=== PATIENT | male | born 1990 | race Caucasian/White ===

== ENCOUNTER 2016-11-23 09:33 | Emergency (ER) | payer BC ==
[~2016-11-23] VITALS: Ht 177.8 cm; Wt 96.4 kg
[~2016-11-23 09:33] MED LIST: CLIN150 PO; PENI500T PO
[2016-11-23 09:37] VITALS: BP 136/77; PULSE 65; RESP 18; TEMP 97.5; O2SAT 97
--- NOTE | 2016-11-23 10:07 | PD ---
HPI Chief Complaint: ENT Complaint Time Seen by Provider: 09:58 Travel History International Travel<30 days: No Contact w/Intl Traveler<30days: No Traveled to known affect area: No History of Present Illness HPI This 25-year-old male says he been sick since last night. He feels like it had fever. He is aching all over. He's had a sore throat. He has been vomiting through the night. He says he gets a sore throat about every 6 months. He is on no medications. He has no history of surgery. He says he was vomiting throughout the night every 30 minutes. He is not having abdominal pain right now PFSH Past Medical History ADHD: Yes ?: Not Social History Alcohol Use: Yes Tobacco Use: No Substance Use: No Allergies-Medications (Allergen,Severity, Reaction): Coded Allergies: ibuprofen (Unverified Allergy, Mild, 11/23/16) Reported Meds & Prescriptions Reported Meds & Active Scripts Active Review of Systems General / Constitutional: Positive: Fever, Chills Eyes: No: Diploplia, Blurred Vision HENT: No: Headaches, Vertigo Cardiovascular: No: Chest Pain or Discomfort Respiratory: No: Cough Gastrointestinal: Positive: Nausea, Vomiting Genitourinary: No: Urgency, Frequency Musculoskeletal: No: Myalgias Skin: No Rash Neurologic: Positive: Weakness Hematologic/Lymphatic: No: Easy Bruising Physical Exam Narrative GENERAL: Well-developed male SKIN: Focused skin assessment warm/dry. HEAD: Atraumatic. Normocephalic. EYES: Pupils equal and round. No scleral icterus. No injection or drainage. ENT: No nasal bleeding or discharge. Mucous membranes pink and moist. Posterior pharynx is erythematous NECK: Trachea midline. No JVD. CARDIOVASCULAR: Regular rate and rhythm. No murmur appreciated. RESPIRATORY: No accessory muscle use. Clear to auscultation. Breath sounds equal bilaterally. GASTROINTESTINAL: Abdomen soft, non-tender, nondistended. Hepatic and splenic margins not palpable. MUSCULOSKELETAL: No obvious deformities. No clubbing. No cyanosis. No edema. NEUROLOGICAL: Awake and alert. No obvious cranial nerve deficits. Motor grossly within normal limits. Normal speech. PSYCHIATRIC: Appropriate mood and affect; insight and judgment normal. Data Data Last Documented VS Vital Signs Date Time Temp Pulse Resp B/P (MAP) Pulse Ox O2 Delivery O2 Flow Rate FiO2 11/23/16 09:37 97.5 65 18 136/77 (96) 97 Orders Orders Complete Blood Count With Diff (11/23/16 10:04) Basic Metabolic Panel (Bmp) (11/23/16 10:04) Influenzae A/B Antigen (11/23/16 10:04) Sodium Chlor 0.9% 1000 Ml Inj (Ns 1000 M (11/23/16 10:15) Sodium Chlor 0.9% 1000 Ml Inj (Ns 1000 M (11/23/16 10:15) Ondansetron Inj (Zofran Inj) (11/23/16 10:15) Group A Rapid Strep Screen (11/23/16 11:17) Ceftriaxone Inj (Rocephin Inj) (11/23/16 11:30) Strep Culture (Group A) (11/23/16 11:20) Labs Laboratory Tests Test 11/23/16 10:25 White Blood Count 22.1 TH/MM3 Red Blood Count 5.48 MIL/MM3 Hemoglobin 15.9 GM/DL Hematocrit 46.8 % Mean Corpuscular Volume 85.5 FL Mean Corpuscular Hemoglobin 29.0 PG Mean Corpuscular Hemoglobin Concent 33.9 % Red Cell Distribution Width 12.4 % Platelet Count 195 TH/MM3 Mean Platelet Volume 8.4 FL Neutrophils (%) (Auto) 88.6 % Lymphocytes (%) (Auto) 5.4 % Monocytes (%) (Auto) 4.3 % Eosinophils (%) (Auto) 0.1 % Basophils (%) (Auto) 1.6 % Neutrophils # (Auto) 19.6 TH/MM3 Lymphocytes # (Auto) 1.2 TH/MM3 Monocytes # (Auto) 0.9 TH/MM3 Eosinophils # (Auto) 0.0 TH/MM3 Basophils # (Auto) 0.4 TH/MM3 CBC Comment AUTO DIFF Differential Comment AUTO DIFF CONFIRMED Blood Urea Nitrogen 12 MG/DL Creatinine 0.90 MG/DL Random Glucose 107 MG/DL Calcium Level 8.8 MG/DL Sodium Level 136 MEQ/L Potassium Level 3.9 MEQ/L Chloride Level 104 MEQ/L Carbon Dioxide Level 23.1 MEQ/L Anion Gap 9 MEQ/L Estimat Glomerular Filtration Rate 102 ML/MIN MDM Medical Decision Making Medical Screen Exam Complete: Yes Emergency Medical Condition: Yes Medical Record Reviewed: Yes Differential Diagnosis Differential includes influenza, URI, pharyngitis Narrative Course Test for influenza is negative. Patient white count is quite elevated at 22, 000. He has had problems with recurrent sore throats. Tests for strep is negative. He will be treated empirically with antibiotics. The white count. Repeat examination the abdomen and there is no suggestion of pneumonia. He is not coughing in his lungs are clear. He has been given Rocephin and will be released Diagnosis Primary Impression: Pharyngitis Qualified Codes: J02.9 - Acute pharyngitis, unspecified Scripts Ondansetron Odt (Zofran Odt) 4 Mg Tab 4 MG SL Q6HR Y for Nausea/Vomiting, #10 TAB 0 Refills Prov: Cole Titus MD 11/23/16 Cephalexin (Keflex) 500 Mg Capsule 500 MG PO QID for Infection for 28 Days, CAP 0 Refills Prov: Cole Titus MD 11/23/16 Disposition: 01 DISCHARGE HOME Condition: Stable Cole Titus MD Nov 23, 2016 10:07
[2016-11-23] MEDS ORDERED: ONDANSETRON HCL 4 MG/2 ML VIAL IV PUSH ONE (10:15)
[2016-11-23] MEDS ORDERED: SODIUM CHLOR 0.9% 1000 ML INJ 1,000 ML IV ONE ×2 (10:15)
[2016-11-23 10:36] LABS: POTASSIUM 3.9 MEQ/L (3.5-5.1)
[2016-11-23 10:39] LABS: BICARBONATE 23.1 MEQ/L (21.0-32.0)
[2016-11-23 11:07] LABS: AUTOMATED NEUTROPHIL # 19.6 TH/MM3 (1.8-7.7); BASOPHIL # 0.4 TH/MM3 (0-0.2); BASOPHIL % 1.6 % (0.0-2.0); EOSINOPHIL % 0.1 % (0.0-4.0); HEMATOCRIT 46.8 % (39.0-51.0); LYMPH % 5.4 % (9.0-44.0); LYMPHOCYTE # 1.2 TH/MM3 (1.0-4.8); MEAN CELL VOLUME 85.5 FL (80.0-100.0); MEAN CORPUSCULAR HGB CONC 33.9 % (32.0-36.0); MONO % 4.3 % (0.0-8.0); NEUT % 88.6 % (16.0-70.0); PLATELET COUNT 195 TH/MM3 (150-450); RED BLOOD COUNT 5.48 MIL/MM3 (4.50-5.90); RED CELL DISTRIBUTION WIDTH 12.4 % (11.6-17.2); WHITE BLOOD COUNT 22.1 TH/MM3 (4.0-11.0)
[2016-11-23 11:11] LABS: HEMO FLAGS AUTO DIFF
[2016-11-23] MEDS ORDERED: cefTRIAXone INJ 1,000 MG in SODIUM CHLORIDE 0.9% INJ 100 ML IV ONE (11:30)
[2016-11-23 11:44] LABS: SCAN/DIFF AUTO DIFF CONFIRMED
[2016-11-23] MEDS ORDERED: CEPH-460 PO (12:04)
[2016-11-23] MEDS ORDERED: ZOFR4TAB3 SL (12:05)
== END 2016-11-23 12:27 | disposition home or self-care (01) ==
LOC: PHEFT 09:33
DX: J02.9 Acute pharyngitis, unspecified (principal)
CPT/HCPCS: 80048; 85025; 87081; 87804; 87880; 96361; 96365; 96375; 99284; J0696; J2405; J7030